=== PATIENT | male | born 1980 | race Caucasian/White ===

== ENCOUNTER 2020-11-26 08:16 | Emergency (ER) | payer MEDICAID ==
[~2020-11-26] VITALS: Ht 167.6 cm; Wt 77.0 kg
[2020-11-26] MEDS ORDERED: IBUPROFEN 600MG TABLET PO ONE (09:00)
[2020-11-26] MEDS ORDERED: IBUP-2028 MT (09:00)
[2020-11-26] MEDS ORDERED: BACITRACIN ZINC OINT UDPKT TOP ONE (10:30)
[2020-11-26 10:52] VITALS: BP 148/98
== END 2020-11-26 13:28 | disposition home or self-care (01) ==
LOC: ER 08:33
DX: M25.572 Pain in left ankle and joints of left foot (principal); M25.552 Pain in left hip; E78.00 Pure hypercholesterolemia, unspecified
CPT/HCPCS: 71101; 73080; 73502; 73560; 73590; 73610; 99284